=== PATIENT | female | born 1960 ===

== ENCOUNTER 2017-05-11 14:42 | Emergency (ER) | payer OTHER ==
[2017-05-11 14:55] VITALS: BP 156/75; PULSE 74; RESP 20; TEMP 98.9; O2SAT 98
--- NOTE | 2017-05-11 15:32 | ED PDOC ---
Arrival/HPI - General Chief Complaint: Lower Extremity Problem/Injury Historian: Patient - History of Present Illness Narrative History of Present Illness (Text): 05/11/17 15:35 Lorenzo Purvis is a 56 year old female, with no significant past medical history, who presents to the emergency department sent by Dr. Richter due to ongoing hip pain. Patient was given Amedral dos pack 2 weeks ago, which she has taken, with minimal relief to her hip pain. Patient notes she has a hard time walking due to pain. Patient denies any fever, vomiting, abdominal pain, or any other complaints. Time/Duration: > week (2 weeks) Symptom Onset: Gradual Symptom Course: Unchanged Activities at Onset: Light Context: Home Past Medical History - Provider Review Nursing Documentation Reviewed: Yes - Reproductive Menopause: No Family/Social History - Physician Review Nursing Documentation Reviewed: Yes Family/Social History: No Known Family HX Allergies/Home Meds Allergies/Adverse Reactions: Allergies No Known Allergies Allergy (Verified 05/11/17 14:52) Review of Systems - Physician Review All systems were reviewed & negative as marked: Yes - Review of Systems Constitutional: Normal Eyes: Normal ENT: Normal Respiratory: Normal. absent: SOB, Cough Cardiovascular: Normal. absent: Chest Pain Gastrointestinal: Normal. absent: Abdominal Pain, Diarrhea, Nausea, Vomiting Genitourinary Female: Normal. absent: Dysuria, Frequency Musculoskeletal: Other (hip pain). absent: Back Pain, Neck Pain Skin: Normal. absent: Rash Neurological: Normal. absent: Headache, Dizziness Endocrine: Normal Hemo/Lymphatic: Normal Psychiatric: Normal Physical Exam Vital Signs Reviewed: Yes Vital Signs Temp Pulse Resp BP Pulse Ox 05/11/17 14:53 98.9 F 74 20 156/75 H 98 Temperature: Afebrile Blood Pressure: Normal Pulse: Regular Respiratory Rate: Normal Appearance: Positive for: Well-Appearing, Non-Toxic, Comfortable Pain Distress: None Mental Status: Positive for: Alert and Oriented X 3 - Systems Exam Head: Present: Atraumatic, Normocephalic Pupils: Present: PERRL Extroacular Muscles: Present: EOMI Conjunctiva: Present: Normal Mouth: Present: Moist Mucous Membranes Neck: Present: Normal Range of Motion Respiratory/Chest: Present: Clear to Auscultation, Good Air Exchange. No: Respiratory Distress, Accessory Muscle Use Cardiovascular: Present: Regular Rate and Rhythm, Normal S1, S2. No: Murmurs Abdomen: Present: Normal Bowel Sounds. No: Tenderness, Distention, Peritoneal Signs Back: Present: Normal Inspection Upper Extremity: Present: Normal Inspection. No: Cyanosis, Edema Lower Extremity: Present: Normal Inspection, Tenderness (Rt gulteal region tenderness). No: Edema Neurological: Present: GCS=15, CN II-XII Intact, Speech Normal Skin: Present: Warm, Dry, Normal Color. No: Rashes Psychiatric: Present: Alert, Oriented x 3, Normal Insight, Normal Concentration Medical Decision Making ED Course and Treatment: 05/11/17 15:10 Impression: 56 year old female sent by Dr. Mares to the ED due to hip pain. Plan: -- Toradol -- Reasses and Disposition Prior Notes: Progress Notes: [facility] performed a Lumbar Spine MRI on 04/26/2017. Images showed : There is preservation of lumbar lordosis. There is no loss of vertebral body height no evidence of a suspicious bone marrow signal abnormality. Conus is normal in caliber position and signal. Survey paraspinal soft tissues unremarkable. There is multilevel loss of disc hydration and bulge, there is bilateral facet and ligamentum flavum hypertophy becoming more pronounced inferiorly. At L1-2, minimal bulge. No focal disc herniation, significant central canal or neural foraminal stenosis. At L2-3 and L3-4, there is mild disc bulges. There is slight effacement of ventral thecal sac. No focal disc herniation, significant central canal stenosis. Bulge and facet hypertrophy cause mild bilateral neural foraminal stenosis. L4-5, moderate disc bulge and superimposed broad based central disc herniation measuring 10mm transverse by 2 mm AP. Finding causes mild central stenosis. There is a left foraminal disc herniation measuring 12 mm transverse by 4.5 mm AP and causing moderate left foraminal stenosis. Bulge and facet hypertrophy cause mild to moderate right foraminal stenosis. L5-S1, grade 1 anterolisthesis which appears to be on the basis of L5 pars defects (spondolosthesis). There is moderate disc bulge with a superimposed right lateral recess and foraminal disc herniation mesuring 21 mm transverse by 5 mm AP. Finding causing moderate to marked right lateral recess stenosis and right foraminal stenosis. There is also mild to moderate central stenosis. Bulge and facet hypertrophy cause mild to moderate left foraminal stenosis. Impression: 1. 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 L4-5, moderate disc bulge and superimposed broad-based central disc herniation measuring 10mm transverse by 2mm AP. Finding causes mild central stenosis. There is left foraminal disc herniation measuring 12 mm transverse by 4.5 mm AP and causing moderate left foraminal stenosis. Bulge and facet hypertrophy cause mild to moderate right foraminal stenosis. 3. L5-S1, grade 1 anterolisthesis which appears to be on the basis of L5 pars defects (spondolistesis). There is moderate disc bulge with a superimposed right lateral recess and foraminal disc herniation measuring 21 mm transverse by 5 mm AP. Finding causing moderate to marked right lateral recess stenosis and right foraminal stenosis. Ther is also mild to moderate central stenosis. Bulge and facet hypertrophy cause mild to moderate left foramina; stenosis. toradol 30 mg IM x 1 dose d/w patient f/u with PMD for further management of sciatica. Advised decrease in heavy lifting this week. 05/11/17 15:32 05/11/17 19:49 - Medication Orders Current Medication Orders: Discontinued Medications Ketorolac Tromethamine (Toradol) 30 mg IM ONCE ONE Stop: 05/11/17 15:16 Last Admin: 05/11/17 15:19 Dose: 30 mg [facility] Pain Assessment Document 05/11/17 15:19 JS (Rec: 05/11/17 15:20 [id number]) Pain Reassessment Is this a pain reassessment? No Sleep Is patient sleeping during reassessment? No Presence of Pain Presence of Pain Yes Pain Scale Used Pain Scale Used Numeric Location Left, Right or Bilateral Right Pain Location Body Site Hip Leg Description Description Intermittent Intensity of Pain at present 8 Acceptable Level of Pain 3 Pain Behavior Grasping Site Facial Grimacing Alleviating Factors/Management Medication Techniques Alleviating Factors Medication IM Administration Charges Document 05/11/17 15:19 JS (Rec: 05/11/17 15:20 [id number]) Injection Site MAR Injection Site Left Deltoid Charges for Administration # of IM Administrations 1 Re-Assess: MAR Pain Reassessment Document 05/11/17 15:49 JS (Rec: 05/11/17 15:50 [id number]) Sleep Is patient sleeping during reassessment? No Pain Reassessment Pain Scale Used Numeric Pain Scale Level 5 Left, Right or Bilateral Right Pain Location Body Site Hip Leg Description Intermittent Alleviating Techniques Medication Disposition/Present on Arrival - Present on Arrival Any Indicators Present on Arrival: No - Disposition Have Diagnosis and Disposition been Completed?: Yes Diagnosis: Sciatica Disposition: HOME/ ROUTINE Disposition Time: 15:48 Patient Plan: Discharge Condition: IMPROVED Discharge Instructions (ExitCare): Sciatica Print Language: TELUGU Prescriptions: Naproxen 375 mg PO Q8 PRN #21 tablet PRN Reason: Pain, Moderate (4-7) Omeprazole Magnesium [Prilosec Otc] 20 mg PO DAILY #15 tablet. oxyCODONE/Acetaminophen [Percocet 5/325 mg Tab] 1 ea PO Q6 PRN #5 tab PRN Reason: Pain, Severe (8-10) Forms: [facility] (Nauruan), [facility] School/Work Excuse
== END 2017-05-11 16:00 | disposition home or self-care (01) ==
LOC: H.ER 14:42
DX: M54.30 Sciatica, unspecified side (principal)
CPT/HCPCS: 96372; 99283; J1885